=== PATIENT | male | born 1990 | race Caucasian/White ===

== ENCOUNTER 2021-04-01 18:22 | Inpatient (IN) | payer OTHER, SELFPAY ==
[~2021-04-01] VITALS: Ht 144.8 cm; Wt 99.3 kg
--- NOTE | 2021-04-01 18:22 | NUR ---
AMBULATED TO BED 1, TRIAGED AT BEDSIDE
[2021-04-01 18:25] VITALS: BP_SYST 160
--- NOTE | 2021-04-01 18:35 | NUR ---
# 20 gauge angiocath placed to LAC. Use of asceptic technique. Opsite placed over site. Blood return noted. Blood for lab drawn from site. Flushed with 10 cc of normal saline. No evidence of infiltration noted. Patient tolerated well.
[2021-04-01] MEDS ORDERED: dilTIAZem HCL IVP 5 MG/ML VIAL ONE (18:41)
[2021-04-01] MEDS ORDERED: NACL 0.9% 1,000 ML IV ONE (19:00)
[2021-04-01] MEDS ORDERED: dilTIAZem HCL IVP 5 MG/ML VIAL IVP ONE ×3 (19:00→21:00)
[2021-04-01 19:23] LABS: BASOPHILS % (AUTO) 0.4 % (0.0-2.0); EOSINOPHILS # (AUTO) 0.1 K/uL (0.0-0.4); EOSINOPHILS % (AUTO) 1.8 % (0.0-4.0); HEMATOCRIT 41.4 % (36-54); HEMOGLOBIN 14.2 g/dL (14.0-18.0); LYMPHOCYTES # (AUTO) 1.1 K/uL (1.0-5.5); LYMPHOCYTES % (AUTO) 17.1 % (20.5-51.5); MEAN CORPUSCULAR HEMOGLOBIN 28 pg (27-31); MEAN CORPUSCULAR HGB CONC 34 % (32-36); MEAN CORPUSCULAR VOLUME 81 fL (79.0-98.0); MONOCYTES # (AUTO) 0.5 K/uL (0.0-1.0); NEUTROPHILS # (AUTO) 4.8 K/uL (1.8-7.7); NEUTROPHILS % (AUTO) 73.7 % (40.0-70.0); PLATELET COUNT (AUTO) 193 K/uL (130-430); RED BLOOD CELL COUNT(AUTO) 5.14 MIL/uL (4.2-6.2); WHITE BLOOD COUNT (AUTO) 6.5 K/uL (4.8-10.8)
[2021-04-01 19:24] LABS: ANION GAP 6 (5-15); CALCIUM 8.7 mg/dL (8.4-11.0); CHLORIDE 103 mmol/L (98-107); CREATININE 1.29 mg/dL (0.55-1.30); GLUCOSE 124 mg/dL (70-99); POTASSIUM 3.9 mmol/L (3.5-5.1); SODIUM SERUM 137 mmol/L (136-145); UREA NITROGEN, BLOOD 19 mg/dL (8-21)
[2021-04-01 19:26] LABS: GFR AFRICAN AMERICAN 83 mL/min (>90)
[2021-04-01 19:30] LABS: ALANINE AMINOTRANSFERASE 46 U/L (12-78); ALBUMIN 3.9 g/dL (3.4-4.8); ASPARTATE AMINOTRANSFERASE 20 U/L (10-37); TOTAL BILIRUBIN 0.3 mg/dL (0.0-1.0)
--- NOTE | 2021-04-01 19:30 | NUR ---
Assumed care of patient at change of shift. Introduced self to patient, positioned for comfort. Patient hr noted at 117-125. Denies any cp at this time but does feel the palpitation. Patient resting quietly. No acute distress noted. Vital signs within normal range. continue to monitor level of comfort.
[2021-04-01 19:37] LABS: ALCOHOL, BLOOD < 3 mg/dL (<10)
[2021-04-01 19:50] LABS: INR 0.9 (0.80-1.20); PROTHROMBIN TIME 9.7 SECS (9.5-12.5)
--- NOTE | 2021-04-01 20:16 | NUR ---
Medicated Cardizem gtt for hr of 120-140 started off at 10mg/hr=10ml, target hr of 90 to 100 bpm. per MD orders. IVF NS already infused with no s/s of infiltration at this time. Will cont to monitor and observe for any adverse reaction and monitor hr.
--- NOTE | 2021-04-01 20:41 | NUR ---
titrated cardizem gtt to 15mg/hr=15ml/hrhr 122-131. Patient states feels better. iv site patent and intact. bed to low position sr up, continue to monitor.
--- NOTE | 2021-04-01 21:00 | NUR ---
patient still w/ elevated hr at 146, patient medicated w/ 20mg of cardizem ivp to Lac (patient continues w/ cardizem gtt) for which patient hr decreased to 98. b/p 120/60. continue to monitor.
--- NOTE | 2021-04-01 21:40 | NUR ---
hr decreased to 100 bpm after being medicated w/ 20mg cardizem bolus. continue to monitor.
--- NOTE | 2021-04-01 22:57 | NUR ---
patient resting comfortably at this time in no acute distress. patient hr decreased to 85-95. patient asleep resting comfortably. still remains on cardizem gtt at 15mg/hr.
--- NOTE | 2021-04-01 23:30 | NUR ---
HR noted to decrease to 70 beats per minute while on Cardizem gtt at 15mg/hr, titrated cardizem gtt down to 10mg/hr patient converted from aflutter 2:1 to nsr rate of 76. Continue to monitor.
[2021-04-02] VITALS (15 sets, daily range): BP systolic 106–129
[2021-04-02] MEDS ORDERED: guaiFENesin/DEXTROMETHORPHAN 10 ML UDC PO PRN (00:15)
[2021-04-02] MEDS ORDERED: MORPHINE 2 MG/ML INJ. SYRINGE IVP PRN (00:15)
[2021-04-02] MEDS ORDERED: ACETAMINOPHEN 500 MG TABLET PO PRN (00:15)
[2021-04-02] MEDS ORDERED: NACL 0.9% 1,000 ML IV SCH (00:15)
[2021-04-02] MEDS ORDERED: HYDROcodone/ACETAMIN 7.5-325 MG TAB PO PRN (00:15)
[2021-04-02] MEDS ORDERED: ONDANSETRON HCL 4 MG/2 ML VIAL IVP PRN (00:15)
[2021-04-02] MEDS ORDERED: ZOLPIDEM TARTRATE 5 MG TABLET PO PRN (00:15)
[2021-04-02] MEDS ORDERED: DOCUSATE SODIUM 100 MG/10 ML UDC PO PRN (00:15)
--- NOTE | 2021-04-02 01:02 | NUR ---
patient informed of admission, verbalized understanding and reason for admission. Patient to transfer to icu1
--- NOTE | 2021-04-02 01:15 | NUR ---
Patient will be admitted to care of md JOSHI. Admitted to icu unit. Will go to room 1. Belongings list completed. Complete and up to date summary report printed. SBAR report to be given at bedside with opportunity for questions given to Kari GRUBBS.
[2021-04-02 06:50] LABS: PHOSPHORUS 4.5 mg/dL (2.7-4.5)
--- NOTE | 2021-04-02 08:40 | NUR ---
PATIENT DOWNGRADED TO TELEMETRY BED. [facility] CHARGE NURSE NOTIFIED AT THIS TIME. NO NURSES IN TELEMETRY. PATIENT CARDIZEM IV D/C'D TO PO FORM. UP AND EATING BREAKFAST WITHOUT DIFFICULTY. NSR ON THE HALL PORTER. NO CHEST PAIN OR PALPITATIONS. PATIENT RESTING COMFORTABLY.
[2021-04-02] MEDS: PANTOPRAZOLE SODIUM 40 MG TAB PO SCH (09:00)
[2021-04-02] MEDS: DILTIAZEM HCL 240 MG CAP.SR.24H PO SCH (09:00)
[2021-04-02 10:12] LABS: BARBITURATE, URINE NEGATIVE (NEG <=200); BENZODIAZEPINE, URINE NEGATIVE (NEG <=150); CANNABINOID, URINE NEGATIVE (NEG <=50); COCAINE, URINE NEGATIVE (NEG <=150); METHAMPHETAMINES SCREEN,URINE NEGATIVE (NEG <=500); OPIATE, URINE NEGATIVE (NEG <=100); PHENCYCLIDINE SCREEN,URINE NEGATIVE (NEG <=25); UR TRICYCLIC ANTIDEPRESSANTS NEGATIVE (NEG <=300); URINE AMPHETAMINE NEGATIVE (NEG <=500); URINE METHADONE NEGATIVE (NEG <=200); URINE OXYCODONE SCREEN NEGATIVE (NEG <=100); URINE PROPOXYPHENE SCREEN NEGATIVE (NEG <=300)
--- NOTE | 2021-04-02 14:38 | NUR ---
CPAP 6 (NOC) ORDERED BY MD CEDILLO. PT REFUSED TO USE CPAP NOC AT THIS TIME. PT STATED THAT PT ONLY USES CPAP BECAUSE OF PREVENTING SNORING LOUD. PT RATHER NOT TO USE CPAP.
--- NOTE | 2021-04-02 18:07 | NUR ---
SPOKE WITH DR. JOSHI REGARDING PATIENT'S REQUEST TO BE D/C'D FOR HIS FIRST DAY OF WORK IN THE AM. DR. JOSHI STATES HE NEEDS TO COMPLETE HIS CARDIAC WORKUP. EXPLAINED TO PATIENT. PATIENT COOPERATIVE AND UNDERSTANDS.
--- NOTE | 2021-04-02 18:09 | NUR ---
PATIENT HAS BEEN IN NSR THROUGHOUT THE SHIFT. PATIENT PO CARDIZEM 240MG TOLERATED. PATIENT EATING WITHOUT DIFFICULTY. PATIENT HAS ADEQUATE URINARY OUTPUT. PATIENT DENIES CHEST PAIN OR PALPITATIONS. PATIENT TRANSPORTED TO ROOM 119 TELE AT THIS TIME IN STABLE CONDITION WITH TELE MONITOR.
--- NOTE | 2021-04-02 18:40 | NUR ---
Pt arrived to floor room 119A. a+oX4. VSS. RA. No pain. Tele insitu. S/L noted to L AC. Pt has no concerns. Bed in low position. Call phelps in reach. Will continue to monitor.
--- NOTE | 2021-04-02 18:44 | NUR ---
REPORT TO Luiz GRUBBS IN TELE
--- NOTE | 2021-04-02 19:15 | NUR ---
change of shift.pt.presents quiescent affect calm,resting.no c/o pain,nausea.pt. capable to reposition self/ambulate unassisted.iv access location lt.forearm iv lock.general status stable.respiratory status stable;unlabored@room air call light/telephone w/in access of the pt.
--- NOTE | 2021-04-02 20:00 | NUR ---
pt.assessed.v/s assessed no c/o pain,nausea.i have apprised the snacks/beverages are available w/in the shift.no request posited @this hour.pt.capable to repositio self.call light/telephone w/in reach of the pt.
--- NOTE | 2021-04-02 22:00 | NUR ---
pt.assessed.pt.presents quiescent affect calm somnolent.per flacc pain mgx pt.absent facial grimaces/body posturing. pt.capable to reposition self.call light/telephone win access of the pt.
[2021-04-02 23:53] LABS: BILIRUBIN,URINE NEGATIVE (NEGATIVE); BLOOD, URINE NEGATIVE (NEGATIVE); CLARITY/URINE TURBID (CLEAR); COLOR,URINE YELLOW (YELLOW); GLUCOSE,URINE NEGATIVE (NEGATIVE); KETONES,URINE NEGATIVE (NEGATIVE); LEUKOCYTE ESTERASE ,URINE NEGATIVE (NEGATIVE); NITRITE, URINE NEGATIVE (NEGATIVE); PROTEIN URINE NEGATIVE (NEGATIVE); UROBILINOGEN,URINE 0.2 (0.2-1.0)
[2021-04-03] VITALS: BP_SYST 132
--- NOTE | 2021-04-03 | NUR ---
pt.assessed.v/s assessed values wnl.no c/o pain,nausea.no requests posited@this hour.pt.capable to reposition self.call light/telephone w/in access of the pt.
[2021-04-03 01:03] LABS: BACTERIA,URINE MANY /HPF (None Seen); CALCIUM OXALATE CRYSTALS,UR 0-10 /HPF (None Seen); MUCUS,URINE None Seen /LPF (None Seen); WBC,URINE 0-3 /HPF (0-3)
--- NOTE | 2021-04-03 02:00 | NUR ---
pt.assessed.pt.presents quiescent affect calm somnolent.per flacc pain mgx pt.absent facial grimaces/body posturing. pt.capable to reposition self.call light/telephone w/in access of the pt.
--- NOTE | 2021-04-03 04:00 | NUR ---
pt.assessed.pt.presents quiescent affect calm,somnolent.per flalcc pain mgx pt.absent facial grimaces/body posturing.pt.capable to reposition self.call light/telephone w/in access of the pt.
--- NOTE | 2021-04-03 06:12 | NUR ---
pt.assessed.pt.presents quiescent affect calm,somnolent.per flacc pain mgx pt.absent facial grimaces/body posturing. pt.capable to reposition self.call light/telephone w/in access of the pt.
[2021-04-03 07:42] LABS: BASOPHILS % (AUTO) 0.5 % (0.0-2.0); EOSINOPHILS # (AUTO) 0.1 K/uL (0.0-0.4); EOSINOPHILS % (AUTO) 2.2 % (0.0-4.0); HEMATOCRIT 44.8 % (36-54); HEMOGLOBIN 15.2 g/dL (14.0-18.0); LYMPHOCYTES # (AUTO) 1.2 K/uL (1.0-5.5); LYMPHOCYTES % (AUTO) 19.1 % (20.5-51.5); MEAN CORPUSCULAR HEMOGLOBIN 28 pg (27-31); MEAN CORPUSCULAR HGB CONC 34 % (32-36); MEAN CORPUSCULAR VOLUME 82 fL (79.0-98.0); MONOCYTES # (AUTO) 0.4 K/uL (0.0-1.0); NEUTROPHILS # (AUTO) 4.5 K/uL (1.8-7.7); NEUTROPHILS % (AUTO) 71.2 % (40.0-70.0); PLATELET COUNT (AUTO) 189 K/uL (130-430); RED CELL DISTRIBUTION WIDTH 14.1 % (9.0-15.0); WHITE BLOOD COUNT (AUTO) 6.4 K/uL (4.8-10.8)
--- NOTE | 2021-04-03 08:00 | NUR ---
FOR DISCHARGE SEEN BY DR JOSHI, FOR DISCHARGE TODAY, PATIENT HAS A JOB INTERVIEW TODAY VIA ZOOM,
[2021-04-03] MEDS ORDERED: DILT240T11 PO (08:12)
[2021-04-03] MEDS ORDERED: ASPI-1155 PO (08:12)
[2021-04-03 08:23] LABS: CALCIUM 8.7 mg/dL (8.4-11.0); CREATININE 1.04 mg/dL (0.55-1.30); POTASSIUM 3.8 mmol/L (3.5-5.1); THYROID STIMULATING HORMONE 2.31 uIu/mL (0.36-3.74)
[2021-04-03 08:30] VITALS: BP_SYST 142
[2021-04-03 08:32] VITALS: BP_SYST 142
[2021-04-03] MEDS: DILTIAZEM HCL 240 MG CAP.SR.24H PO SCH (08:46)
[2021-04-03] MEDS: PANTOPRAZOLE SODIUM 40 MG TAB PO SCH (08:46)
[2021-04-03] MEDS ORDERED: POTASSIUM CHLORIDE 20 MEQ TAB.PRT.SR PO PRN (09:00)
--- NOTE | 2021-04-03 09:10 | NUR ---
D/C Patient Patient given medication reconciliation form and D/C instructions. Exit Care provided. Patient verbalized understanding. MD discussed with patient the results and treatment provided. Ambulatory with steady gait for discharge to home. Patient in stable condition, ID band removed. IV catheter removed, intact and dressing applied, no active bleeding. Rx of given. Patient educated on pain management. All belongings sent with patient. New prescription given to the patient.
== END 2021-04-03 09:10 | disposition home or self-care (01) | DRG 309 ==
LOC: SED 18:22 → SIC 22:02 → STU 04-02 17:49
PROVIDERS: ADMIT Family Medicine; ATTEND Family Medicine
DX: I48.92 Unspecified atrial flutter (principal); Z68.42 Body mass index [BMI] 45.0-49.9, adult; E66.01 Morbid (severe) obesity due to excess calories; G47.33 Obstructive sleep apnea (adult) (pediatric); E83.41 Hypermagnesemia; Z20.822 Contact with and (suspected) exposure to COVID-19; I48.0 Paroxysmal atrial fibrillation
CPT/HCPCS: 36415; 71045; 80048; 80053; 80061; 80307; 81000; 82150; 83036; 83605; 83690; 83735; 83880; 84100; 84443; 84484; 85025; 85610-TC; 85730-TC; 87081; 87086; 93005; 93306; 96361; 96374; 96375; 99285; G0378; G0482; J3490